=== PATIENT | female | born 1975 | race Caucasian/White ===

== ENCOUNTER → 2017-08-03 | Outpatient (CLI) | payer OTHER ==
[~2017-08-03] MED LIST: ALPR.25 PO; ALPR1; ALPR1 PO; AMOX500 PO; CLON.1 PO; CLON.2; CLON.2 PO; CLON.5 PO; CLON1; CLON1 PO; DULO30; ESCI5; FENT100TP TOP; FENT75TP; FLUSAL2505 IH; GABA300 PO; HYDACE5 PO; HYDMOR2; HYDMOR8; IBUP800 PO; LORA1 PO; METH10; METH10 PO; METH40; METO50 PO; NAPR500 PO; OXYC30 PO; OXYC30ER PO; POLTRIOPSO OS; PROM25 PO; PROP10; PROP40 PO; PROP80ER; RXERYTOPTH OP; RXLORA1 PO; SUBOXONE; SULTRISS PO; TRAM50 PO; Vibramycin100 MG PO; [UNRECOGNIZED DRUG - OTHER] PO
[2017-08-05 11:00] LABS: MDA Not Detected (NOTDET); MDEA Not Detected (NOTDET); MDMA Not Detected (NOTDET)
== END ==
LOC: LAB 16:06
PROVIDERS: Student in an Organized Health Care Education/Training Program
DX: Z51.81 Encounter for therapeutic drug level monitoring (principal); Z79.899 Other long term (current) drug therapy
CPT/HCPCS: G0480

== ENCOUNTER → 2017-10-01 | Outpatient (CLI) | payer OTHER ==
[2017-10-04 17:15] LABS: Alpha Hyrdroxyalprazolam 482.8 ng/mL (NOTDET); Alpha hydroxytriazolam Not Detected (NOTDET); Alprazolam 83.9 ng/mL (NOTDET); Confirm Clonazepam LC/MS 13.9 ng/mL (NOTDET); Confirm Flunitrazepam LC/MS Not Detected (NOTDET); Diazepam Not Detected (NOTDET); Flurazepam Not Detected (NOTDET); Lorazepam Not Detected (NOTDET); Midazolam Not Detected (NOTDET); Temazepam Not Detected (NOTDET)
[2017-10-05 14:03] LABS: MDA Not Detected (NOTDET); MDEA Not Detected (NOTDET); MDMA Not Detected (NOTDET)
[2017-10-06 13:56] LABS: Methadone Metab. by GC/MS 17340 ng/mL (NOTDET)
== END ==
LOC: LAB 17:45
PROVIDERS: Student in an Organized Health Care Education/Training Program
DX: Z51.81 Encounter for therapeutic drug level monitoring (principal); Z79.899 Other long term (current) drug therapy
CPT/HCPCS: G0480

== ENCOUNTER → 2017-12-01 | Outpatient (CLI) | payer OTHER ==
[~2017-12-01] MED LIST changes: -Vibramycin100 MG PO
[2017-12-01 19:49] LABS: U Amphetamine Screen DETECTED; U Barbituate Screen Not Detected; U Benzodiazapine Screen DETECTED; U Buprenorphine Screen Not Detected; U Cannabinoids Screen Not Detected; U Cocaine Screen Not Detected; U Methadone Screen DETECTED; U Methamphetamine Screen Not Detected; U Opiates Screen Not Detected; U Oxycodone Screen Not Detected; U Phencyclidine Screen Not Detected; U Propoxyphene Screen Not Detected
== END ==
LOC: LAB SHORT 17:54 → LAB 17:54
PROVIDERS: Student in an Organized Health Care Education/Training Program
DX: Z51.81 Encounter for therapeutic drug level monitoring (principal); Z79.899 Other long term (current) drug therapy

== ENCOUNTER → 2017-12-20 | Outpatient (CLI) | payer OTHER | LOC: LAB 17:15 → LAB SHORT 17:15 | DX: Z79.899 Other long term (current) drug therapy (principal) | CPT/HCPCS: G0480 ==

== ENCOUNTER → 2018-01-03 | Outpatient (CLI) | payer OTHER | LOC: LAB SHORT 16:15 → LAB 16:15 | DX: Z51.81 Encounter for therapeutic drug level monitoring (principal); Z79.899 Other long term (current) drug therapy | CPT/HCPCS: G0480 ==

== ENCOUNTER 2018-03-15 03:42 | Emergency (ER) | payer OTHER ==
[~2018-03-15] VITALS: Ht 175.3 cm; Wt 61.2 kg
[2018-03-15] MEDS ORDERED: Vibramycin100 MG PO (04:05)
[2018-03-15] MEDS ORDERED: CLON.2 PO (04:05)
[2018-03-15] MEDS ORDERED: GABA300 PO (04:22)
== END 2018-03-15 04:45 | disposition home or self-care (01) ==
LOC: ER 03:42
DX: L02.416 Cutaneous abscess of left lower limb (principal); L02.415 Cutaneous abscess of right lower limb; Z76.0 Encounter for issue of repeat prescription; Z88.8 Allergy status to other drugs, medicaments and biological substances; Z79.899 Other long term (current) drug therapy; Z79.891 Long term (current) use of opiate analgesic; Z79.2 Long term (current) use of antibiotics; I10 Essential (primary) hypertension; F41.9 Anxiety disorder, unspecified; F90.9 Attention-deficit hyperactivity disorder, unspecified type; F17.200 Nicotine dependence, unspecified, uncomplicated
CPT/HCPCS: 99282

== ENCOUNTER → 2018-08-16 | Outpatient (CLI) | payer OTHER ==
[~2018-08-16] MED LIST changes: +Vibramycin100 MG PO
== END ==
LOC: LAB SHORT 17:49 → LAB 17:49
DX: Z51.81 Encounter for therapeutic drug level monitoring (principal); Z79.899 Other long term (current) drug therapy
CPT/HCPCS: G0480

== ENCOUNTER → 2018-10-20 | Outpatient (CLI) | payer OTHER ==
[2018-10-20 18:59] LABS: U Methadone Screen DETECTED; U Oxycodone Screen Not Detected
== END ==
LOC: LAB SHORT 16:28 → LAB 16:28
PROVIDERS: Student in an Organized Health Care Education/Training Program
DX: Z51.81 Encounter for therapeutic drug level monitoring (principal); Z79.899 Other long term (current) drug therapy

== ENCOUNTER → 2018-12-29 | Outpatient (CLI) | payer OTHER ==
[~2018-12-29] MED LIST changes: +Augmentin 875-1 EACH PO; +Esgic Tablet1 EACH PO; +KETO10 PO
[2018-12-29 11:48] LABS: U Amphetamine Screen Not Detected; U Barbituate Screen Not Detected; U Benzodiazapine Screen Not Detected; U Buprenorphine Screen Not Detected; U Cannabinoids Screen Not Detected; U Cocaine Screen Not Detected; U Methadone Screen DETECTED; U Methamphetamine Screen Not Detected; U Opiates Screen Not Detected; U Oxycodone Screen Not Detected; U Phencyclidine Screen Not Detected; U Propoxyphene Screen Not Detected
== END ==
LOC: LAB 09:34 → LAB SHORT 09:34
PROVIDERS: Student in an Organized Health Care Education/Training Program
DX: F11.20 Opioid dependence, uncomplicated (principal); F15.21 Other stimulant dependence, in remission; Z79.899 Other long term (current) drug therapy

== ENCOUNTER 2019-01-04 19:50 | Emergency (ER) | payer OTHER ==
[~2019-01-04] VITALS: Ht 175.3 cm; Wt 79.4 kg
[~2019-01-04 19:50] MED LIST changes: -Augmentin 875-1 EACH PO; -Esgic Tablet1 EACH PO; -KETO10 PO
[2019-01-04] MEDS ORDERED: Esgic Tablet1 EACH PO (20:13)
[2019-01-04] MEDS ORDERED: Augmentin 875-1 EACH PO (21:53)
[2019-01-04] MEDS ORDERED: KETO10 PO (21:53)
== END 2019-01-04 21:59 | disposition home or self-care (01) ==
LOC: ER 19:50
DX: J32.9 Chronic sinusitis, unspecified (principal); Z88.8 Allergy status to other drugs, medicaments and biological substances; Z79.899 Other long term (current) drug therapy; I10 Essential (primary) hypertension; F90.9 Attention-deficit hyperactivity disorder, unspecified type; F41.9 Anxiety disorder, unspecified; F17.210 Nicotine dependence, cigarettes, uncomplicated
CPT/HCPCS: 70450; 96372; 99283-25; J0780; J1200; J1885

== ENCOUNTER → 2019-03-27 | Outpatient (CLI) | payer OTHER ==
[~2019-03-27] MED LIST changes: +Augmentin 875-1 EACH PO; +Esgic Tablet1 EACH PO; +KETO10 PO
== END ==
LOC: LAB SHORT 13:27 → LAB 13:27
DX: F15.21 Other stimulant dependence, in remission (principal)
CPT/HCPCS: G0480

== ENCOUNTER → 2019-04-27 | Outpatient (CLI) | payer OTHER ==
[2019-04-27 11:59] LABS: U Amphetamine Screen Not Detected; U Barbituate Screen DETECTED; U Benzodiazapine Screen DETECTED; U Methadone Screen DETECTED; U Methamphetamine Screen Not Detected; U Opiates Screen DETECTED
[2019-04-27 12:00] LABS: U Buprenorphine Screen Not Detected; U Cannabinoids Screen Not Detected; U Cocaine Screen Not Detected; U Oxycodone Screen Not Detected; U Phencyclidine Screen Not Detected; U Propoxyphene Screen Not Detected
== END ==
LOC: LAB SHORT 10:16 → LAB 10:16
PROVIDERS: Student in an Organized Health Care Education/Training Program
DX: Z51.81 Encounter for therapeutic drug level monitoring (principal); Z79.899 Other long term (current) drug therapy

== ENCOUNTER 2019-07-21 08:48 | Inpatient (IN) | payer OTHER ==
[~2019-07-21] VITALS: Ht 172.7 cm; Wt 63.4 kg
[~2019-07-21 08:48] MED LIST changes: +GABAPENTIN600 MG PO
[2019-07-21 09:27] LABS: BASOPHILS ABSOLUTE AUTO 0.03 K/mm3 (0.00-0.23); BASOPHILS PERCENT AUTO 0 % (0-2); EOSINOPHILS PERCENT AUTO 1 % (0-6); Hemoglobin 11.5 g/dL (11.5-16.0); IMMATURE GRAN ABSOLUTE AUTO 0.08 K/mm3 (0.00-0.10); IMMATURE GRAN PERCENT AUTO 1 % (0-1); LYMPHOCYTES ABSOLUTE AUTO 1.65 K/mm3 (0.84-5.20); LYMPHOCYTES PERCENT AUTO 9 % (21-46); MONOCYTES ABSOLUTE AUTO 0.89 K/mm3 (0.16-1.47); MONOCYTES PERCENT AUTO 5 % (4-13); Mean Corpuscular HGB 27.4 pg (26.0-34.0); Mean Corpuscular HGB Conc 31.9 g/dL (31.5-36.5); Mean Corpuscular Volume 86 fL (80-100); Mean Platelet Volume 9.3 fL (9.1-12.4); NEUTROPHILS ABSOLUTE AUTO 14.76 K/mm3 (1.96-9.15); NEUTROPHILS PERCENT AUTO 84 % (41-73); Platelet Count 456 K/mm3 (150-400); RDW Coefficient Variation 13.9 % (11.7-14.2); RDW Standard Deviation 43.2 fL (35.1-46.3); White Blood Cell Count 17.61 K/mm3 (4.00-11.30)
[2019-07-21 09:40] LABS: Alanine Aminotransfer (ALT/SGP 28 U/L (12-78); Albumin/Globulin Ratio 0.6 (0.8-1.8); Alk Phos 87 U/L (50-136); Anion Gap 6 mmol/L (6-16); Aspartate Aminotrans (AST/SGOT 18 U/L (12-37); Bilirubin, Total 0.6 mg/dL (0.1-1.0); Blood Urea Nitrogen 5 mg/dL (8-24); Bun/Creatinine Ratio 10.3 (12.0-20.0); CO2, Blood 29 mmol/L (21-32); Calcium, Blood 9.2 mg/dL (8.5-10.1); Chloride, Blood 106 mmol/L (98-108); Creatinine, Blood 0.48 mg/dL (0.40-1.00); Globulin, Blood 5.2 g/dL (2.2-4.0); Glomerular Filtration Rate >60 (60-); Glucose, Blood 158 mg/dL (70-99); Potassium, Blood 2.8 mmol/L (3.5-5.5); Sodium, Blood 141 mmol/L (136-145); Total Protein, Blood 8.2 g/dL (6.4-8.2)
[2019-07-21 10:07] LABS: U Amphetamine Screen DETECTED; U Barbituate Screen Not Detected; U Benzodiazapine Screen DETECTED; U Cannabinoids Screen Not Detected; U Cocaine Screen Not Detected; U Methadone Screen Not Detected; U Methamphetamine Screen DETECTED; U Opiates Screen DETECTED; U Phencyclidine Screen Not Detected
[2019-07-21 10:08] LABS: U Buprenorphine Screen Not Detected; U Oxycodone Screen Not Detected; U Propoxyphene Screen Not Detected
[2019-07-21] MEDS ORDERED: CLON.1 PO (12:26)
[2019-07-21] MEDS ORDERED: CLON1 PO (12:27)
[2019-07-21] MEDS ORDERED: VENL150ER PO (12:28)
--- NOTE | 2019-07-21 15:09 | NUR ---
PT CAME TO PACU WITH IV VANCO INFUSING PER PUMP AT 110 CC /HOUR
--- NOTE | 2019-07-21 18:16 | NUR ---
PT STATES THAT SHE HAS BEEN TAKING METHADONE AT 80MG DOSE DAILY. PT STATED HER LAST DOSE WAS WEDNESDAY AT 11 PM. POST OP PT WAS CLIMBING OUT OF BED AND TELLING STAFF SHE WAS PREPARED TO LEAVE. SPOKE TO HER AND DETERMINED THAT SHE WAS HAVING IV PAIN WITH THE INFUSION OF POTASSIUM CONCURRENTLY WITH NS. ADJUSTED THE NS UP 10ML/HR AND THE POTASSIUM RATE DOWN 10ML/HR. MEDICATED THE PT WITH IV TORADOL. PT STATED SHE WAS WITHDRAWING FROM HER METHADONE. CALLED AND SPOKE TO DR CHAVEZ, CLINIC CLOSED AT THIS HOUR SO UNABLE TO VERIFY PT IS ACTUALLY TAKING METHADONE, PT USES HEROIN WHEN SHE IS NOT TAKING METHADONE (PER REPORT FROM RYAN DINERO). NEW ORDER FOR 10MG PO METHADONE Q8 TO PREVENT NARCOTIC WITHDRAWL.
--- NOTE | 2019-07-21 18:41 | NUR ---
SHIFT SUMMARY- PT HAS HAD NO ACUTE CHANGE SINCE TAKING OVER CARE AT 1645. SEE PREVIOUS NOTES FOR DETAILS. PT CURRENTLY IN BED CALL [facility] GIRLFRIEND AT THE BEDSIDE. NO S&S OF DISTRESS, POST OP VITALS HAVE BEEN STABLE TO THIS POINT.
--- NOTE | 2019-07-21 19:47 | NUR ---
Patient axnious to go outside to smoke. iv fluid stopped and tamper resistant taape placed on hubs. patient instructed that the maximun time off floor is one hour.
--- NOTE | 2019-07-21 20:51 | NUR ---
patient returned from outside at 2024. IV intact
--- NOTE | 2019-07-22 04:09 | NUR ---
Patient out with friend again to smoke. She was gone just over an hour. Security was called as she was late for her IV antibiotic and had been told not to be out for more than an hour or she would be discharged and have to come back in through the ER. Patient and S/O understood and both said they had just lost track of the time and it wouldn't happen again.
[2019-07-22 05:09] LABS: BASOPHILS ABSOLUTE AUTO 0.03 K/mm3 (0.00-0.23); BASOPHILS PERCENT AUTO 0 % (0-2); EOSINOPHILS ABSOLUTE AUTO 0.31 K/mm3 (0.00-0.68); EOSINOPHILS PERCENT AUTO 3 % (0-6); Hematocrit 28.9 % (33.0-51.0); IMMATURE GRAN ABSOLUTE AUTO 0.05 K/mm3 (0.00-0.10); IMMATURE GRAN PERCENT AUTO 0 % (0-1); LYMPHOCYTES ABSOLUTE AUTO 2.72 K/mm3 (0.84-5.20); LYMPHOCYTES PERCENT AUTO 23 % (21-46); MONOCYTES ABSOLUTE AUTO 0.86 K/mm3 (0.16-1.47); MONOCYTES PERCENT AUTO 7 % (4-13); Mean Corpuscular HGB Conc 31.1 g/dL (31.5-36.5); Mean Corpuscular Volume 87 fL (80-100); Mean Platelet Volume 9.7 fL (9.1-12.4); NEUTROPHILS PERCENT AUTO 67 % (41-73); Platelet Count 350 K/mm3 (150-400); RDW Coefficient Variation 14.4 % (11.7-14.2); RDW Standard Deviation 45.9 fL (35.1-46.3); Red Blood Cell Count 3.33 M/mm3 (3.80-5.20); White Blood Cell Count 12.07 K/mm3 (4.00-11.30)
--- NOTE | 2019-07-22 05:38 | NUR ---
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 very minimal complaints of discomfort. gluteal dressing replaced a 2nd time when it saturated and tape let loose. Area again covered with sterile gauze and absorbant pad over top. Multiple abraded areas over left hip and down left leg. One leaked small amount serous fluid on lateral aspect of knee. Rolled gauze in room for dressing when patient wakes
[2019-07-22 05:46] LABS: Alanine Aminotransfer (ALT/SGP 20 U/L (12-78); Albumin, Blood 2.2 g/dL (3.4-5.0); Albumin/Globulin Ratio 0.5 (0.8-1.8); Alk Phos 67 U/L (50-136); Anion Gap 7 mmol/L (6-16); Aspartate Aminotrans (AST/SGOT 17 U/L (12-37); Bilirubin, Total 0.3 mg/dL (0.1-1.0); Blood Urea Nitrogen 5 mg/dL (8-24); CO2, Blood 25 mmol/L (21-32); Calcium, Blood 8.2 mg/dL (8.5-10.1); Chloride, Blood 109 mmol/L (98-108); Globulin, Blood 4.3 g/dL (2.2-4.0); Glomerular Filtration Rate >60 (60-); Glucose, Blood 97 mg/dL (70-99); Potassium, Blood 3.8 mmol/L (3.5-5.5); Sodium, Blood 141 mmol/L (136-145); Total Protein, Blood 6.5 g/dL (6.4-8.2)
--- NOTE | 2019-07-22 06:01 | NUR ---
Called from lab. Gram positive cocci found in one culture bottle drawn yesterday
--- NOTE | 2019-07-22 10:55 | NUR ---
patient has headed outside. patient's significant other is currently moving her outside in a wheelchair. we have had a conversation about her dressings and about her current condition and her decsion to go outside. my concerns were easily brushed off by the patient and her significant other.
[2019-07-22 13:51] LABS: Vancomycin, Trough 7.4 ug/mL (5.0-10.0)
--- NOTE | 2019-07-22 14:38 | NUR ---
PATIENT HAS BENE GOING IN AND OUT OF THE HOSPITAL BUT STAYING UNDER THE ONE HOUR TIME LIMIT. PATIENT HAS TAMPER TAPE ON HER IV BUT HAS ADMITTED TO PREVIOUS OR PAST USE OF IM USE OF HEROIN THAT COULD BE THE CAUSE OF HER ABCESS. PATIENT HAS BEEN COMING BACK FROM OUTSIDE VERY GIDDY.
--- NOTE | 2019-07-22 17:03 | NUR ---
shift summary patient has a lot of highs and lows. no acute concerns at this time, will continue to monitor. she states that her iv is hurting, she is currently going outside with girlfriend. at this time the patient has changed in demeanor. she is upset at this time. when i disconnected the patient from her iv pump, which she had turned off on her own, she stated that no one had been treating her pain, no one changed her dressing (which we did not have orders to change, nor would she let me throughout the day), and she was going "to go outside and take [her] own medications". i promptly informed dr. emerson about this concern and he stated that if she was going to be medicating herself that we needed to discontinue her pain medication. this has been done and currently we are awaiting the patient to come back inside.
--- NOTE | 2019-07-22 19:45 | NUR ---
Patient upset stating "no one has been in here all day. No one has changed my dressings." Explained to patient that offgoing RN just changed her right hip and right gluteal dressings at 1730.
--- NOTE | 2019-07-22 20:21 | NUR ---
PATIENT INSISTING SHE NEVER ADMITTED TO TAKING HER OWN MEDS TO "ANYONE". STATES, "THAT'S WHY OUR FRIENDS DON'T COME HERE." STATES SHE HAS BEEN "BEGGING" ALL DAY FOR DRESSING CHANGES AND JUST GOT IT BEFORE 1800. tHEN TOLD NIGHT MICROFICHE DUPLICATOR THAT DRESSINGS HAD NEVER BEEN CHANGED AN HOUR LATER. EXPLAINED THAT SHE HAD TOLD DAY RN THAT SHE WOULD JUST GOP OUTSIDE AND TAKE HER OWN PAIN MEDS. PATIENT DENIED EVER HAVING SAID THAT.
--- NOTE | 2019-07-22 21:02 | NUR ---
po clonazepam given for escalating anxiety
--- NOTE | 2019-07-23 05:15 | NUR ---
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 Slept 3-4 hours straight and only went outside once before bed. A&OX4, up independently in room. voiding independently in toilet. Patient did scratch open an abraded area on anterior left thigh which was scabbed over and dry night before. area cleaned with wound cleanser and covered with mepilex. Patient denied scratching the scabbed over areas (several) on left leg.
[2019-07-23] MEDS ORDERED: DOXY100 PO (10:32)
--- NOTE | 2019-07-23 14:50 | NUR ---
DISCHARGE DISCHARGE MEDICATIONS AND INSTRUCTIONS EXPLAINED TO PATIENT. PATIENT STATED UNDERSTANDING. CARE MANAGEMENT TO FOLLOW UP WITH SCHEDULING PCP APPOINTMENT. WOUND CARE COMPLETED BEFORE DISCHARGE. IV REMOVED WITHOUT DIFFICULTY. PATIENT AMBULATED TO PRIVATE VEHICLE.
--- NOTE | 2019-07-23 17:37 | NUR ---
07/23/[id number] dr emerson notifed me that [facility] came back and they would not cover the antibiotics that she was prescribed.. dr emerson instructed me to call in mew rx so i called in bactrim ds i bid 14 tablet to [facility] and [facility]'s father was notifed of the change and He will tell his and she will get the new medication to [facility].
== END 2019-07-23 14:45 | disposition home or self-care (01) | DRG 854 ==
LOC: ER 08:48 → MEDS 12:06 → ENPENDDIS 07-23 09:47 → MEDS 07-23 14:45
PROVIDERS: Emergency Medicine; Nurse Practitioner Acute Care; Surgery; ADMIT Internal Medicine
PROC: 0J990ZZ Drainage of Buttock Subcutaneous Tissue and Fascia, Open Approach (ICD-10-PCS; principal; 2019-07-21 13:45)
DX: A41.9 Sepsis, unspecified organism (principal); L03.317 Cellulitis of buttock; L02.31 Cutaneous abscess of buttock; F32.9 Major depressive disorder, single episode, unspecified; I10 Essential (primary) hypertension; E87.6 Hypokalemia; F19.10 Other psychoactive substance abuse, uncomplicated; F41.1 Generalized anxiety disorder; F17.210 Nicotine dependence, cigarettes, uncomplicated; Z86.14 Personal history of Methicillin resistant Staphylococcus aureus infection
CPT/HCPCS: 36415; 72193; 80053; 80202; 83605; 84703; 85025; 87040; 87070; 87075; 87077; 87147; 87186; 87205; 96361; 96374-59; 96375-59; 99284-25; J1885; J2250; J2405; J2704; J3010; J3370; J3480; J7030; J7120; Q9967